=== PATIENT | female | born 1975 | race Caucasian/White ===

== ENCOUNTER 2023-03-26 00:46 | Emergency (ER) | payer SELFPAY ==
[~2023-03-26] VITALS: Ht 157.5 cm; Wt 66.0 kg
[2023-03-26 00:50] VITALS: BP 132/76; O2SAT 98
[2023-03-26] MEDS ORDERED: IBUP-2029 MT (01:25)
[2023-03-26] MEDS ORDERED: RISP2TAB85 MT (01:25)
[2023-03-26] MEDS ORDERED: SERT25TA MT (01:25)
[2023-03-26] MEDS ORDERED: GABA-529 MT (01:25)
[2023-03-26] MEDS ORDERED: FAMO-135 MT (01:25)
[2023-03-26 01:50] VITALS: PULSE 80; RESP 20; TEMP 98.5
[2023-03-26] MEDS ORDERED: METR-167 MT (08:42)
== END 2023-03-26 01:50 | disposition home or self-care (01) ==
LOC: ER 01:44
DX: Z76.0 Encounter for issue of repeat prescription (principal); I10 Essential (primary) hypertension; Z79.899 Other long term (current) drug therapy
CPT/HCPCS: 99283

== ENCOUNTER 2023-03-26 05:16 | Emergency (ER) | payer MEDICAID ==
[~2023-03-26] VITALS: Ht 160 cm; Wt 54.0 kg
[~2023-03-26 05:16] MED LIST: FAMO-135 MT; GABA-529 MT; IBUP-2029 MT; RISP2TAB85 MT; SERT25TA MT
[2023-03-26 05:45] VITALS: BP 114/44; PULSE 80; RESP 16; TEMP 98.6; O2SAT 98
[2023-03-26 06:07] LABS: CLARITY URINE CLEAR (CLEAR); COLOR URINE YELLOW (YELLOW); GLUCOSE URINE NEGATIVE (NEGATIVE); KETONES URINE NEGATIVE (NEGATIVE); LEUKOCYTE ESTERASE URINE NEGATIVE (NEGATIVE); NITRITE URINE NEGATIVE (NEGATIVE); OCCULT BLOOD URINE NEGATIVE (NEGATIVE); PROTEIN URINE NEGATIVE (NEGATIVE); SPECIFIC GRAVITY URINE 1.021 (1.005-1.030)
[2023-03-26] MEDS ORDERED: METR-167 MT (08:42)
[2023-03-26 09:38] LABS: UCG SCREEN NEGATIVE
== END 2023-03-26 09:24 | disposition home or self-care (01) ==
LOC: ER 05:16
DX: N76.0 Acute vaginitis (principal); I10 Essential (primary) hypertension
CPT/HCPCS: 81003; 81025; 99283

== ENCOUNTER 2024-09-17 13:35 | Emergency (ER) | payer MEDICAID ==
[~2024-09-17] VITALS: Ht 162.6 cm; Wt 61.0 kg
[~2024-09-17 13:35] MED LIST changes: +METR-167 MT; +RISP-29 MT; -RISP2TAB85 MT
[2024-09-17 13:40] VITALS: BP 126/84; TEMP 100.3; O2SAT 100
[2024-09-17 13:44] VITALS: PULSE 129; RESP 16; O2SAT 96
[2024-09-17] MEDS ORDERED: ACETAMINOPHEN 325MG TABLET PO ONE (14:30)
[2024-09-17 14:52] LABS: HEMATOCRIT. 40.5 % (36.0-48.0); HEMOGLOBIN. 13.7 g/dL (12.0-16.0); MEAN CORPUSCULAR HEMOGLOBIN 32.8 pg (28.0-32.0); MEAN CORPUSCULAR HGB CONC 33.8 g/dL (31.0-37.0); MEAN CORPUSCULAR VOLUME 97.2 fL (81.0-99.0); MEAN PLATELET VOLUME 9.1 fl (7.4-10.4); PLATELET 220 x1000/uL (130-400); RED BLOOD CELL COUNT 4.16 mill/uL (4.2-5.4); RED CELL DISTRIBUTION WIDTH 12.3 % (11.6-14.6); WHITE BLOOD COUNT 7.8 x1000/uL (4.5-11.0)
[2024-09-17 14:56] LABS: CHLORIDE 100 mEq/L (98-107); POTASSIUM 3.8 mEq/L (3.5-5.1); SODIUM 132 mEq/L (136-145)
[2024-09-17 14:57] LABS: CALCIUM 9.4 mg/dL (8.7-10.4); CARBON DIOXIDE 25 mEq/L (21-32)
[2024-09-17 15:02] LABS: CREATININE 0.7 mg/dL (0.6-1.0); GLUCOSE 102 mg/dL (70-105); UREA NITROGEN BLOOD 9 mg/dL (9-23)
[2024-09-17 15:12] LABS: DIFFERENTIAL COMMENT 1
[2024-09-17 15:17] LABS: TROPONIN I HIGH SENSITIVITY < 4 ng/L (3.0-34)
[2024-09-17] MEDS ORDERED: IBUP-2029 MT (16:51)
[2024-09-17] MEDS ORDERED: CEPH500T MT (16:51)
[2024-09-17] MEDS: ACETAMINOPHEN 325MG TABLET PO NR (17:48)
[2024-09-17 18:22] LABS: PLATELET ESTIMATE NORMAL
== END 2024-09-17 17:51 | disposition home or self-care (01) ==
LOC: ER 13:35
DX: B34.9 Viral infection, unspecified (principal); R10.9 Unspecified abdominal pain; I10 Essential (primary) hypertension; Z79.899 Other long term (current) drug therapy
CPT/HCPCS: 36415; 71045; 80048; 83605; 84484; 85025; 93005; 99285